=== PATIENT | female | born 1970 | race Caucasian/White ===

== ENCOUNTER 2017-02-25 14:54 | Outpatient (CLI) | payer OTHER ==
[2017-02-25] MEDS ORDERED: GADOBUTROL 7.5 MMOL/7.5 ML VIAL IVP ONE (16:03)
--- NOTE | 2017-02-25 17:15 | MRI Report ---
EXAM: RIGHT WRIST MRI WITHOUT AND WITH CONTRAST EXAM DATE: 02/25/2017 04:28 p.m. CLINICAL HISTORY: Right dorsal ganglion cyst and lateral soft tissue mass. COMPARISON: None. TECHNIQUE: Multiplanar, multisequence T1-weighted and fluid-sensitive sequences of the wrist before a nd after administration of intravenous contrast. IV contrast: 6 mL of Gadavist. Other: None. FINDINGS: Bones: There are foci of subchondral cyst formation in the medial half of the proximal pole of the wisam yi, and the anterior aspect of the triquetrum. The findings are suggestive of prior osteochondral i njuries with intraosseous cyst formation. There are no visible fractures. There are no other foci of marrow edema or cyst formation. Cartilage: The articular cartilage is unremarkable. There is an oblique, subtle full-thickness tear o f the TFCC immediately proximal to the scapholunate interval. There is fluid in the distal radioulnar joint. The finding is best visualized on the coronal gradient echo images. Ligaments: The scapholunate and lunotriquetral ligaments are intact. The visualized other intrinsic, extrinsic and collateral ligaments are unremarkable. Tendons: The extensor compartments I through and flexor tendons are unremarkable without tear or t enosysnovitis. Musculature: No edema or fatty atrophy. Other: The contents of the carpal tunnel, including the median nerve, are unremarkable. Guyons canal is unremarkable. There is an 8 x 10 x 6 mm dorsal ganglion cyst posterior to the capitate and lunate underlying the surface marker. There is a 3.6 x 11.0 x 5.3 mm ganglion cyst overlying the anterior a spect of the radial styloid process, which is also consistent with a surface marker. No joint effusio ns or synovitis. The subcutaneous tissues are unremarkable. No abscess or cellulitis. IMPRESSION: 1. Ganglion cysts that correspond with the dorsal and ventral surface markers adjacent to the radial styloid process and dorsal aspect of the capitate and lunate. 2. Findings suggestive of prior osteochondral injuries to the proximal poles of the lunate and trique trum. 3. There is a full-thickness tear of the TFCC immediately underlying the osteochondral injuries of th e lunate and triquetrum. [facility] MUSCULOSKE[facility]AL RADIOLOGY SECTION Referring Provider Line: [phone] SITE ID: [id number]
== END 2017-02-25 14:55 | disposition home or self-care (01) ==
LOC: DI 14:54
PROVIDERS: ATTEND Orthopaedic Surgery
DX: M67.431 Ganglion, right wrist (principal); S63.591A Other specified sprain of right wrist, initial encounter
CPT/HCPCS: 73223; A9585